=== PATIENT | male | born 1980 | race Caucasian/White ===

== ENCOUNTER 2018-01-07 13:27 | Emergency (ER) | payer OTHER ==
[2018-01-07 13:32] VITALS: BP 121/84
--- NOTE | 2018-01-07 13:42 | EDPHY ---
H & P Stated Complaint: ear plug stuckin r ear Time Seen by Provider: 01/07/18 13:41 HPI/ROS: HPI: This is a 37-year-old male who presents with Chief Complaint: Ear plug stuck in right ear Location: Right ear Quality: Foreign object Duration: 3 hr prior to arrival Signs and Symptoms: no fever, no nausea, no vomiting, no photophobia, no noise sensitivity, no neck stiffness, no ear pain, no tinnitus, no nasal congestion, no sinus pressure, no weakness, no radiation, no aura Timing: Acute Severity: Mild Context: Patient is generally healthy, placed rubber ear plugs inside of his ears earlier in the day while he was working in the garage. He reports that he attempted to pull them out and the right ear plug remained in his ear. His friend attempted to removed ear plug but only could get a few remnants. Reports decreased hearing on the right side. Denies tinnitus/drainage/ dizziness. Modifying Factors: See above Comment: ROS: see HPI Constitutional: No fever, no chills, no weight loss Eyes: No blurred vision Respiratory: No shortness of breath, no cough Cardiovascular: No chest pain, no palpitations Gastrointestinal: No nausea, no vomiting, no diarrhea, no hematemesis, no blood in stool Genitourinary: No dysuria, no blood in urine Extremities: No myalgias, no edema Neurologic: No weakness, no numbness Skin: No rashes, no petechiae Hematologic: No bruising, no bleeding MEDICAL/SURGICAL/SOCIAL HISTORY: Medical history: Generally healthy. Does not take any regular medications. Surgical history: Denies Social history: Family history noncontributory. CONSTITUTIONAL: awake and alert, no obvious distress HEENT: Atraumatic and normocephalic, PERRL, EOMI. Nares patent; no rhinorrhea; no nasal mucosal edema. Tympanic membranes clear. Oropharynx clear, no exudate and moist pink mucosa. Airway patent. No lymphadenopathy. No meningismus. Cardiovascular: Normal S1/S2, regular rate, regular rhythm, without murmur rub or gallop. PULMONARY/CHEST: Symmetrical and nontender. Clear to auscultation bilaterally. Good air movement. No accessory muscle usage. ABDOMEN: Soft, nondistended, nontender, no rebound, no guarding, no peritoneal signs, no masses or organomegaly. No CVAT. EXTREMITIES: 2/2 pulses, strength 5/5, no deformities, no clubbing, no cyanosis or edema. NEUROLOGICAL: no focal neuro deficits. GCS 15. SKIN: Warm and dry, no erythema. no rash. Good capillary refill. Source: Patient Exam Limitations: No limitations - Personal History Current Tetanus/Diphtheria Vaccine: No - Medical/Surgical History Hx Asthma: No Hx Chronic Respiratory Disease: No Hx Diabetes: No Hx Cardiac Disease: No Hx Renal Disease: No Hx Cirrhosis: No Hx Alcoholism: No Hx HIV/AIDS: No Hx Splenectomy or Spleen Trauma: No Other PMH: denies - Social History Smoking Status: Never smoked Constitutional: Initial Vital Signs Temperature (C) 37 C 01/07/18 13:29 Heart Rate 82 01/07/18 13:29 Respiratory Rate 18 01/07/18 13:29 Blood Pressure 121/84 H 01/07/18 13:29 O2 Sat (%) 97 01/07/18 13:29 O2 Delivery Mode Room Air Allergies/Adverse Reactions: sulfamethoxazole [From Bactrim] Allergy (Verified 01/07/18 13:29) trimethoprim [From Bactrim] Allergy (Verified 01/07/18 13:29) Home Medications: Medication Instructions Recorded NK [No Known Home Meds] 01/07/18 Medical Decision Making Procedures: Procedure: Foreign body removal from right external auditory canal Anesthesia: None required After verbal consent was obtained, the blue rubber ear plug was removed from right external auditory canal. The foreign body was removed manually with forceps under direct visualization. There were no complications. The procedure was performed by myself. ED Course/Re-evaluation: Rubber ear plug easily removed times 1st attempt No signs of tympanic membrane rupture/otitis externa/otitis media/laceration Advised supportive care This patient was seen under the supervision of my secondary supervising physician. I evaluated care for this patient independently. Differential Diagnosis: Differential diagnosis includes but is not limited to tympanic membrane rupture , foreign body, ear laceration. Departure - Departure Disposition: Home, Routine, Self-Care Clinical Impression: Foreign body in right ear, initial encounter Condition: Good Instructions: Ear Foreign Body (ED) Additional Instructions: Please avoid sticking your finger in your ear or using Q-Tips x 1 week. Referrals: PCP Not In,Dictionary [Medical Doctor] - As per Instructions
== END 2018-01-07 14:06 | disposition home or self-care (01) ==
PROC: 09C37ZZ Extirpation of Matter from Right External Auditory Canal, Via Natural or Artificial Opening (ICD-10-PCS; principal; 2018-01-07)
DX: T16.1XXA Foreign body in right ear, initial encounter (principal); X58.XXXA Exposure to other specified factors, initial encounter; Y92.094 Garage of other non-institutional residence as the place of occurrence of the external cause; Y99.0 Civilian activity done for income or pay; Y93.89 Activity, other specified